=== PATIENT | male | born 1965 | race Caucasian/White ===

== ENCOUNTER 2024-05-28 19:05 | Emergency (ER) | payer BC, SELFPAY ==
[2024-05-28 19:07] VITALS: BP 157/82
[2024-05-28 19:31] VITALS: BMI 23.0
--- NOTE | 2024-05-28 21:14 | ED.GENMED ---
History of Present Illness
General
Chief Complaint: Skin Surface Trauma
Source: patient and spouse
Exam Limitations: none
Time Seen by Provider: 05/28/24 19:29
Nursing documentation reviewed up to this point in time: agreed with
History of Present Illness
History of Present Illness:
58-year-old male with past medical history of hypertension presenting to the emergency department today with concerns of a laceration to his right forearm that occurred from a foreign light when he was cleaning out a barn prior to arrival. Unsure
when his last tetanus shot was. He claims that the barn is very dirty. Denies any numbness weakness or difficulty with movement of the right upper extremity.
Review of Systems
Review of Systems
Allergies reviewed?: Yes
All Other Systems: ROS reviewed and negative except as documented in HPI and ROS
Phy Exam
Physical Exam
Physical Exam:
GENERAL: Alert , in no apparent distress
EYE: pupils equal and reactive
NECK: Supple, no significant adenopathy.
ENT: o/p clr, mmm.
CARDIAC: Regular rate and rhythm .
LUNGS: Clear breath sounds bilaterally, no acute respiratory distress, no wheezes/rales/rhonchi
ABDOMEN: Soft, without focal tenderness, no r/g, no cvat
NEUROLOGICAL: Alert and oriented, no focal neuro deficits
SKIN: 4 cm laceration to the right lateral forearm no foreign body seen warm and dry, skin intact.
MUSCULOSKELETAL: No edema, well perfused.
PSYCH: Normal and appropriate interaction.
Course
Orders/Labs/Results
Orders:
Orders
05/28/24 19:42
CR Forearm - Right 2 View Urgent
Comment:
Reason For Exam: LAC
05/28/24 21:14
Cephalexin Monohydrate [Keflex] 500 mg PO NOW STA
Tetanus/Diphth/Acelpertussis [Adacel] 0.5 ml IM .ONCE ONE
Vital Signs
Initial and Last Documented VS:
Initial Vital Signs
Temp Pulse Resp BP Pulse Ox
98.4 F 78 18 157/82 96
05/28/24 19:07 05/28/24 19:07 05/28/24 19:07 05/28/24 19:07 05/28/24 19:07
Last Documented Vital Signs
Temp Pulse Resp BP Pulse Ox
97.9 F 60 17 111/73 96
05/28/24 21:24 05/28/24 21:24 05/28/24 21:24 05/28/24 21:24 05/28/24 19:07
Procedures
Laceration Closure
Right Lower Lateral Arm:
Status of Wound: clean
Size of Wound in cm: 4
Description of Wound Edges: sharp
Preparation: cleaned with saline
Anesthesia: 1% Lidocaine with epi
Revision/Debridement: routine- no revision and irrigate-direct pressure
Wound exploration: explored to base- no FB and no tendon involvement
Type of Closure: single layer closure
Skin Closure Material: 4-0 nylon
Number of sutures: 7
MDM/Problems Addressed
MDM/Problems Addressed:
58-year-old male presenting to the emergency department today with concerns of laceration to the right forearm prior to arrival 4 cm in length cleaned thoroughly closed with 7 nondissolving stitches. Was given an updated tetanus shot and also given
antibiotics due to potential dirty type wound though no gross contamination. Otherwise stable for discharge return precautions given. X-ray without evidence of fracture or radiopaque foreign body
*Critical Care Note
Total Time (30-74mins, 75-104mins- exclusive of procedures): Not Applicable
ED Attending Note
-
Portions of this chart may have been created with voice recognition software.� Occasional wrong word or��sound alike� substitutions may have occurred due to the inherent limitations of voice recognition software.
Discharge Plan
Departure
Patient Disposition: Home (Routine Discharge)
Date of Disposition: 05/28/24
Time of Disposition: 21:14
Patient with high blood pressure during this ER visit?: No
Condition: Good
Covid-19: Not Applicable
Discharge Problem:
Forearm laceration
Instructions: Laceration Repair With Stitches (DC)
Prescriptions:
New
cephalexin 500 mg capsule
500 mg PO TID 3 Days Qty: 9 0RF
Referrals:
Nicole Hackett MD [Family Provider] -
Activity Restrictions/Additional Instructions:
You came to the emergency department today for concerns of a laceration to your right forearm. This was cleaned thoroughly and closed with 7 stitches. Please follow-up in 12 to 14 days for suture removal and otherwise keep the area clean and
covered in the meantime. Please also take Keflex 3 times daily for the next 3 days. Return to the emergency department for any worsening, new or concerning symptoms.
Interventions
Interventions:
*Risk Screen - Suicide Last Done: 05/28/24 21:24
*General Assessment Last Done: 05/28/24 19:29
*Neglect/Abuse Screening Last Done: 05/28/24 19:29
ED- Fall Risk Assessment Last Done: 05/28/24 19:30
*ED COVID-19 Vaccine History Last Done: 05/28/24 19:29
*Nursing Disposition Last Done: 05/28/24 21:24
ED-Skin Assessment Last Done: 05/28/24 19:31
Discharge Date and Time
Discharge Date/Time: 05/28/24 21:25
Print Language: MONGOLIAN
[2024-05-28] MEDS: KEFLEX 500 MG PO (21:16)
[2024-05-28] MEDS: ADACEL 0.5 ML IM (21:17)
[2024-05-28 21:24] VITALS: BP 111/73
== END 2024-05-28 21:25 | disposition home or self-care (01) ==
LOC: EMR 19:05
PROVIDERS: EMERGENCY PHYSICIAN Emergency Medicine; FAMILY PHYSICIAN Family Medicine
DX: S51.811A Laceration without foreign body of right forearm, initial encounter (principal); W45.8XXA Other foreign body or object entering through skin, initial encounter; Y93.H9 Activity, other involving exterior property and land maintenance, building and construction; Z23 Encounter for immunization; I10 Essential (primary) hypertension
CPT/HCPCS: 99283; 12002; 90471; 73090; 90715